=== PATIENT | female | born 1960 | race Caucasian/White ===

== ENCOUNTER 2017-07-01 13:57 | Emergency (ER) | payer MEDICAID ==
[2017-07-01 14:17] VITALS: BP 104/71; PULSE 82; RESP 14; TEMP 97.9; O2SAT 97
[2017-07-01] MEDS ORDERED: LIDOCAINE 5% 1 EA PATCH TD ONE (14:42)
--- NOTE | 2017-07-01 14:45 | EDPHY ---
H & P HPI/ROS: CHIEF COMPLAINT: Left foot pain History by patient HISTORY OF PRESENT ILLNESS: 56-year-old woman with a history of hepatitis C, alcoholism and who is homeless complains of ongoing left ankle pain and swelling times many weeks had an extensive workup including an MRI and arthrocentesis and has been seen by an orthopedist and was recently referred to a pay station collector but states she can't get an appointment for 3 months. She says today she would like pain medicine for her foot and to be seen by the pay station collector sooner. She states she has been taking ibuprofen and tramadol with minimal relief. She has been wearing a boot that was given to her by the orthopedist. REVIEW OF SYSTEMS: As in HPI, and all other systems reviewed and are negative Smoking Status: Current every day smoker Physical Exam: General Appearance: Alert and no distress. Eyes: Pupils equal and round no injection. Musculoskeletal: Neck is supple and nontender. Extremities: Left ankle with chronic skin changes and swelling, decreased range of motion due to pain but full range of motion passively, no erythema or calor, minimal tenderness, DP pulses 2+, distal sensations back, patient wiggle her toes,. Skin: No rashes or lesions except as described above. Constitutional: Initial Vital Signs Temperature (C) 36.6 C 07/01/17 14:08 Heart Rate 82 07/01/17 14:08 Respiratory Rate 14 07/01/17 14:08 Blood Pressure 104/71 07/01/17 14:08 O2 Sat (%) 97 07/01/17 14:08 O2 Delivery Mode Room Air Allergies/Adverse Reactions: acetaminophen [From Tylenol] Allergy (Intermediate, Verified 07/01/17 14:17) Penicillins Allergy (Unknown, Verified 07/01/17 14:17) eggs Allergy (Intermediate, Uncoded 07/01/17 14:17) Home Medications: Medication Instructions Recorded OXYCODONE HCL 5 mg PO Q6H PRN #20 11/24/10 Loratadine [Children's Claritin 5 5 mg PO 10/14/12 mg chew tab] Mupirocin 2% [Bactroban 2%] 15 gm TP BID #1 tube 07/06/14 Sulfamethox/Tmp 800/160 mg 1 tab PO BID #8 tab 07/06/14 [Bactrim DS] oxyCODONE IR [Oxycodone Ir (RX)] 5 - 10 mg PO Q8 #30 tab 09/12/14 Lidocaine 5% [Lidoderm 5% Patch 1 ea TD DAILY #30 patch 07/01/17 (*)] MDM/Departure - [facility] ED Course/Re-evaluation: 56-year-old woman with longstanding history of left ankle swelling and prior extensive workup. I [facility] the [facility] which revealed an MRI that showed diffuse synovitis. Following MRI the patient had fluoro guided arthrocentesis which was negative for gout or infection by cell count and culture. Patient shows near card with referral to a pay station collector. She is requesting pain medication. Patient is given topical lidocaine patches in the emergency department and a prescription for topical lidocaine patches. Discussed how opiates are not a good option for chronic pain and tramadol did not work for her previously any way. I have encouraged her to continue with the anti-inflammatories ibuprofen given she has an inflammatory condition. I also encouraged her to be persistent and getting her rheumatology follow-up. Patient was offered resources for shelters however she states she knows all the shelters and she declined this. Patient was discharged stable condition. - Depart Disposition: Home, Routine, Self-Care Clinical Impression: Synovitis of ankle Condition: Fair Instructions: Tenosynovitis (ED) Additional Instructions: You were seen by Dr. Svetlana Fernandez today. Try topical lidocaine patches as needed for pain. Continue to take ibuprofen 400-600 mg 4 times daily. Follow up with pay station collector and orthopedist as scheduled. Return for any worsening or new concerns. Prescriptions: Lidocaine 5% [Lidoderm 5% Patch (*)] 1 ea TD DAILY #30 patch Referrals: DR RAMSEY QUIÑONEZ [Other] - As per Instructions
[2017-07-01] MEDS ORDERED: PATCH REMOVAL 1 EA PATCH TD SCH (21:00)
== END 2017-07-01 15:14 | disposition home or self-care (01) ==
LOC: CED 13:57
DX: M65.9 Synovitis and tenosynovitis, unspecified (principal); F17.200 Nicotine dependence, unspecified, uncomplicated